=== PATIENT | male | born 1950 | race Caucasian/White ===

== ENCOUNTER 2017-09-11 15:10 | Outpatient (CLI) | payer BC ==
[2017-09-11 16:09] LABS: #Eosinphils 0.1 thou/uL (0.0-0.7); #Lymphocytes 1.7 thou/uL (1.20-3.40); #Monocytes 0.5 thou/uL (0.11-0.59); #Neutrophils 4.3 thou/uL (1.40-6.50); %Basophils 0.3 % (0.0-1.0); %Eosinophils 1.1 % (0.0-10.0); %Lymphocytes 26.1 % (21.0-51.0); %Monocytes 7.9 % (0.0-10.0); Hematocrit 45.3 % (42.0-52.0); Mean Platelet Volume 7.9 fL (7.4-10.4); White Blood Cell (WBC) Count 6.6 thou/uL (4.8-10.8)
[2017-09-11 16:33] LABS: ALT (SGPT) 15 U/L (8-55); AST (SGOT) 14 U/L (5-34); Alkaline Phosphatase 77 U/L (40-150); Anion Gap 12 mmol/L (10-20); BUN (Urea Nitrogen) 14 mg/dL (8.4-25.7); Bilirubin, Total 0.6 mg/dL (0.2-1.2); Calc. Creatinine Clearance 0 mL/min (70-130); Calcium 9.4 mg/dL (7.8-10.44); Carbon Dioxide 28 mmol/L (23-31); Chloride 104 mmol/L (98-107); Estimated GFR-MDRD 79; Protein, Total 7.4 g/dL (5.8-8.1)
--- NOTE | 2017-09-12 14:53 | EKG ---
Test Reason : Blood Pressure : / mmHG Vent. Rate : 051 BPM Atrial Rate : 051 BPM P-R Int : 182 ms QRS Dur : 102 ms QT Int : 444 ms P-R-T Axes : 068 060 023 degrees QTc Int : 409 ms Sinus bradycardia Non-specific intra-ventricular conduction delay Abnormal ECG Confirmed by FARRAH MCNALLY ([id number]) on 09/12/2017 2:52:49 PM Referred By: ELIANA Confirmed By:FARRAH MCNALLY
== END 2017-09-11 15:11 | disposition home or self-care (01) ==
LOC: EDBD → LABBT 15:10
PROVIDERS: ATTEND Surgery
DX: Z01.818 Encounter for other preprocedural examination (principal); K40.90 Unilateral inguinal hernia, without obstruction or gangrene, not specified as recurrent
CPT/HCPCS: 80053; 85025; 93005; 93010

== ENCOUNTER 2017-09-25 05:48 | Day surgery (SDC) | payer BC ==
[2017-09-11 15:20] VITALS: BMI 19.5
[2017-09-25] MEDS ORDERED: CEFAZOLIN/Water 2 GM/20 ML SYRINGE ONE (06:28)
[2017-09-25] MEDS ORDERED: Fentanyl 250 MCG/5 ML VIAL ONE (07:05)
[2017-09-25] MEDS ORDERED: Midazolam HCl 2 mg/2 ml Vial ONE (07:11)
[2017-09-25] MEDS ORDERED: Lidocaine 2% w/Epinephrine 1:200K 20 ML VIAL ONE (07:15)
[2017-09-25] MEDS ORDERED: Bupivacaine 0.25% HCL 30 ML VIAL ONE (07:15)
[2017-09-25] MEDS ORDERED: Lidocaine 1% PF 5 ML VIAL ONE (07:34)
[2017-09-25] MEDS ORDERED: Propofol 200 MG/20 ML VIAL ONE (07:34)
[2017-09-25] MEDS ORDERED: Ondansetron HCl/PF 4 MG/2 ML Vial ONE (07:34)
[2017-09-25] MEDS ORDERED: Glycopyrrolate 0.2 MG/ML 5 ML SYRINGE ONE (07:34)
[2017-09-25] MEDS ORDERED: Dexamethasone 20 MG/5 ML VIAL ONE (07:34)
--- NOTE | 2017-09-25 09:19 | OP ---
PREOPERATIVE DIAGNOSIS: Left inguinal hernia. SURGEON: Tariq James M.D. PROCEDURE PERFORMED: Laparoscopic robotic assisted left inguinal hernia repair with mesh. INDICATIONS: This is a 66-year-old male who was found to have a painful bulge in the left groin and found to have a hernia. FINDINGS: A large left inguinal hernia which was direct in nature, a large contour mesh was used. DESCRIPTION OF THE PROCEDURE: After informed consent was obtained, the patient was taken to the ope rating room and given general endotracheal anesthesia. He was placed in the supine position. His a bdomen was prepped and draped in the usual fashion. Local anesthesia infiltrated subcutaneously and deep. A subumbilical incision was performed, subcu divided sharply. The fascia grasped and an inc ision made in the fascia. Digital palpation revealed no local adhesions. A 10, 12 trocar inserted. Pneumoperitoneum was created to a pressure of 15 mmHg and 30-degree laparoscope inserted. Under d irect vision, two 8 mm ports were placed just lateral to the rectus bilaterally. The patient placed in Trendelenburg position and the robot was docked, then I went to the console. The colon was inca rcerated within the hernia. This was reduced and lysis of adhesions performed. Then, the peritoneu m opened from median umbilical ligament laterally utilizing sharp dissection and a subperitoneal joseph ne was developed using blunt and sharp dissection. A large left contour mesh was inserted and place d within this pocket, it was sutured to the pubic tubercle with a 2-0 silk suture tied intracorporea lly and then laterally with a 2-0 silk suture. Then the peritoneum was closed from lateral to media l utilizing a running Strattice V-Loc PDS suture. Hemostasis was assured. The right side was inspe cted. There was no right-sided hernia. Trocars and retractors removed. The fascia closed with int errupted 0 Vicryl suture. The skin closed with interrupted 4-0 Rapide. Dermabond applied. The pat ient tolerated the procedure well and transferred to recovery in good condition. Sponge and needle count verified correct x2.
[2017-09-25] MEDS ORDERED: HYDROcodone/Acetaminophen 5/325 mg Tablet ONE (10:32)
== END 2017-09-25 11:06 | disposition home or self-care (01) ==
LOC: SDC 05:48 → EDBD 16:15
PROVIDERS: ATTEND Surgery
PROC: 8E0W4CZ Robotic Assisted Procedure of Trunk Region, Percutaneous Endoscopic Approach (ICD-10-PCS; principal; 2017-09-25)
PROC: 0YU64JZ Supplement Left Inguinal Region with Synthetic Substitute, Percutaneous Endoscopic Approach (ICD-10-PCS; principal; 2017-09-25)
DX: K40.30 Unilateral inguinal hernia, with obstruction, without gangrene, not specified as recurrent (principal); E11.9 Type 2 diabetes mellitus without complications; Z79.84 Long term (current) use of oral hypoglycemic drugs
CPT/HCPCS: S2900; C1781; J0131; J1100; J2001; J2250; J2405; J2704; J3010; S0020